=== PATIENT | male | born 1940 | race Caucasian/White ===

== ENCOUNTER → 2016-10-03 | Outpatient (CLI) | payer MEDICARE, OTHER ==
--- NOTE | 2016-10-03 11:19 | MRI ---
EXAM DESCRIPTION: MRI left knee without contrast CLINICAL HISTORY: Medial knee pain meniscal tear chondrosis chronic COMPARISON: None Available. TECHNIQUE: Non contrast MR imaging left knee FINDINGS: Cruciate ligaments are intact. Minimal extensor tendinosis and magic angle artifact. Very large joint effusion/ hemarthrosis. Moderate Ward's cyst measuring nearly 6 cm craniocaudal. Mild free edge degenerative horizontal fraying posterior horn body junction lateral meniscus. More extensive horizontal cleavage tear throughout the medial meniscus with parameniscal cyst formation along the medial joint line. Free edge volume loss posteriorly. Parameniscal cyst extends along the anterior horn as well. There is fairly diffuse grade 4 chondrosis throughout the midportion medial femoral condyle with subchondral edema. There is also vague grade 4 chondrosis towards the posterior aspect of the lateral femoral condyle adjacent to the posterior horn lateral meniscus. This area measures nearly 10 mm in diameter. Mild subchondral edema in this area. There is synovitis/ debris in the popliteus sheath/ recess. There is partial medial extrusion of the medial meniscus along the medial joint line. There is thickening of the MCL which appears reactive or remote. There is tendinosis of the popliteus tendon. Multifocal grade 4 chondrosis of the patella most pronounced in the inferior apex. There is delamination extending into the lateral patellar facet. Lower grade chondrosis of the trochlea. 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
== END ==
LOC: MRI 08:42
PROVIDERS: ATTEND Family Medicine
DX: M23.304 Other meniscus derangements, unspecified medial meniscus, left knee (principal); M23.302 Other meniscus derangements, unspecified lateral meniscus, unspecified knee; M25.462 Effusion, left knee; M19.90 Unspecified osteoarthritis, unspecified site; M94.262 Chondromalacia, left knee

== ENCOUNTER → 2016-10-16 | Outpatient (CLI) | payer MEDICARE, OTHER ==
--- NOTE | 2016-10-16 10:03 | RAD ---
EXAM DESCRIPTION: XR KNEE 4 OR MORE VIEWS CLINICAL HISTORY: 76 y/o ,M, PAIN COMPARISON: October 03, 2016 IMPRESSION: There is a large a joint effusion noted. Joint space loss of the medial and lateral compartments compatible with degenerative change. No evidence of fracture or osseous lesion. Electronically signed by: Richie Gaspar MD 10/16/2016 10:01
--- NOTE | 2016-10-16 10:10 | RAD ---
EXAM DESCRIPTION: XR PELVIS 1-2 VIEWS CLINICAL HISTORY: PAIN COMPARISON: None available FINDINGS: Two AP views of the pelvis show no displaced pelvic fracture. The hip joints are anatomically aligned and fairly well maintained. There are moderately advanced degenerative changes in the lower lumbar spine at several levels. Mild degenerative changes are noted in both sacroiliac joints. Soft tissue calcification adjacent to the anterior superior iliac spine is not acute and may be related to remote trauma. IMPRESSION: Degenerative changes involving the lower lumbar spine and sacroiliac joints, but no acute pelvic abnormality. Electronically signed by: Herve Escalante DO 10/16/2016 10:08
== END ==
LOC: RAD 08:06
PROVIDERS: ATTEND Orthopaedic Surgery
DX: M25.562 Pain in left knee (principal); M25.552 Pain in left hip; M25.462 Effusion, left knee; M12.88 Other specific arthropathies, not elsewhere classified, other specified site

== ENCOUNTER → 2017-08-08 | Outpatient (CLI) | payer MEDICARE, OTHER | END | disposition home or self-care (01) | LOC: LAB.O 11:55 | DX: N18.3 Chronic kidney disease, stage 3 (moderate) (principal) ==

== ENCOUNTER → 2018-01-16 | Outpatient (CLI) | payer MEDICARE, OTHER | LOC: GMAL 14:28 | PROVIDERS: ATTEND Family Medicine | DX: I50.9 Heart failure, unspecified (principal) ==

== ENCOUNTER → 2018-01-31 | Outpatient (CLI) | payer MEDICARE, OTHER | LOC: LAB.O 12:05 | PROVIDERS: ATTEND Internal Medicine Nephrology | DX: N18.3 Chronic kidney disease, stage 3 (moderate) (principal) ==

== ENCOUNTER → 2019-07-30 | Outpatient (CLI) | payer MEDICARE, OTHER | END | disposition home or self-care (01) | LOC: GMAL 15:19 | PROVIDERS: ATTEND Family Medicine | DX: E53.8 Deficiency of other specified B group vitamins (principal); Z12.5 Encounter for screening for malignant neoplasm of prostate; R53.83 Other fatigue; E55.9 Vitamin D deficiency, unspecified | CPT/HCPCS: 82306; 82607; 84443; G0103 ==

== ENCOUNTER → 2019-08-18 | Outpatient (CLI) | payer MEDICARE, OTHER ==
--- NOTE | 2019-08-18 16:28 | RAD ---
EXAM DESCRIPTION: Shoulder,Left 2 or More Views CLINICAL HISTORY: PAIN IN LEFT SHOULDER COMPARISON: None Available. TECHNIQUE: Four radiographs of the left shoulder FINDINGS: There is good internal and external rotation. There is no fracture or bone lesion. There are no significant degenerative changes observed. IMPRESSION: 1. Normal left shoulder four views. Electronically signed by: Pedro Michelle MD 08/18/2019 4:27 PM [facility]
== END ==
LOC: RAD 14:33
PROVIDERS: ATTEND Orthopaedic Surgery
DX: M25.512 Pain in left shoulder (principal)

== ENCOUNTER → 2020-03-12 | Outpatient (CLI) | payer MEDICARE, OTHER | LOC: LAB.O 09:34 | PROVIDERS: ATTEND Internal Medicine Nephrology | DX: N18.3 Chronic kidney disease, stage 3 (moderate) (principal) ==

== ENCOUNTER 2020-04-14 14:54 | Emergency (ER) | payer MEDICARE, OTHER ==
[2020-04-14] MEDS ORDERED: SODIUM CHLORIDE 0.9% 1000ML 1,000 ML IVS ONE (15:14)
[2020-04-14] MEDS ORDERED: IBUPROFEN 200 MG TAB PO ONE (15:15)
--- NOTE | 2020-04-14 15:44 | CT ---
EXAM DESCRIPTION: Head CLINICAL HISTORY: headache 24 hours COMPARISON: None TECHNIQUE: Noncontrast transaxial CT images of the head are obtained from base to vertex. This exam was performed according to our departmental dose-optimization program, which includes automated exposure control, adjustment of the mA and/or kV according to patient size and/or use of iterative reconstruction technique. FINDINGS: The midline structures are not displaced. Sulci are age-appropriate. There are areas of decreased attenuation in the periventricular white matter and the white matter of the centrum semiovale. 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 There is no evidence of mass, mass-effect, hydrocephalus, or acute intracranial hemorrhage. No abnormal extra axial fluid collection is seen. Moderate calcifications of the intracranial carotid arteries are seen. Bone windows show no evidence of depressed skull fracture. The visualized paranasal sinuses are unremarkable. IMPRESSION: 1. Age-appropriate atrophy with evidence of old small vessel ischemic type changes seen. 2. No acute abnormality is seen on noncontrast CT of the head. Electronically signed by: Fred Baxter MD 04/14/2020 3:42 PM CDT
[2020-04-14 17:29] VITALS: TEMP 97.1
--- NOTE | 2020-04-14 17:49 | ED.PDOC ---
History of Present Illness - General Chief Complaint: Headache Stated Complaint: headache Time Seen by Provider: 04/14/20 14:59 Source: patient, family Exam Limitations: no limitations - History of Present Illness Initial Comments: The patient is a 79-year-old male presented emergency room with family secondary to a headache that is been persistent over the last 18 hours. Headache is to the crown of the scalp. No focal tenderness. No trauma. No altered mental status. The patient is not taking any blood thinners. He rarely gets a headache. Family is concerned for coronavirus. No fever. No runny nose. No sore throat. No nausea or vomiting. No diarrhea. No rash. No shortness of breath. No chest pain. The patient does work outside in the heat fairly extensively. Timing/Duration: other Severity: moderate Improving Factors: nothing Worsening Factors: nothing Associated Symptoms: headaches Allergies/Adverse Reactions: Allergies Codeine Adverse Reaction (Verified 04/14/20 15:11) Hydrocodone Adverse Reaction (Verified 04/14/20 15:11) Home Medications: Ambulatory Orders Aspirin 81 mg PO DAILY 11/03/14 Review of Systems - Review of Systems Constitutional: States: malaise EENTM: States: no symptoms reported Respiratory: States: no symptoms reported Cardiology: States: no symptoms reported Gastrointestinal/Abdominal: States: no symptoms reported Genitourinary: States: no symptoms reported Musculoskeletal: States: no symptoms reported Skin: States: no symptoms reported Neurological: States: headache Endocrine: States: no symptoms reported All other Systems: No Change from Baseline Past Medical History (General) - Patient Medical History Hx Seizures: No Hx of COPD: No Hx Congestive Heart Failure: No Hx Diabetes: No Hx Cancer: Yes - prostate ca - Vaccination History Hx Tetanus, Diphtheria Vaccination: No Hx Influenza Vaccination: Yes Hx Pneumococcal Vaccination: Yes - 2005 - Social History Hx Alcohol Use: No - Activities of Daily Living Hospice Agency (if applicable):: None - Female History Patient is a Female of Child Bearing Age (10 -59 yrs old): No Family Medical History - Family History Mother Living Status: Physical Exam - Physical Exam General Appearance: Alert, Comfortable, No apparent distress Eye Exam: bilateral normal Ears, Nose, Throat: hearing grossly normal, other - Moderate wax in ear canals but no obstruction Neck: non-tender, supple Respiratory: lungs clear, normal breath sounds, no respiratory distress, no accessory muscle use Cardiovascular/Chest: normal peripheral pulses, regular rate, rhythm - Borderline bradycardia, no edema Peripheral Pulses: radial,right: 2+, radial,left: 2+ Gastrointestinal/Abdominal: non tender, soft Rectal Exam: deferred Back Exam: no vertebral tenderness Extremity: non-tender, no pedal edema, no calf tenderness, normal capillary refill 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, alert, normal mood/affect, oriented x 3 Skin Exam: normal color Comments: Vital Signs - 24 hr 04/14/20 04/14/20 04/14/20 15:04 15:06 15:30 Temperature 97.5 F L Pulse Rate [ 60 60 55 L brachial] Respiratory 16 16 16 Rate Blood Pressure 169/97 170/75 [Left Arm] O2 Sat by Pulse 97 97 Oximetry 04/14/20 04/14/20 04/14/20 15:31 15:32 16:30 Temperature 97.5 F L Pulse Rate [ 59 L 60 55 L brachial] Respiratory 16 17 12 Rate Blood Pressure 186/83 163/89 172/78 [Left Arm] O2 Sat by Pulse 95 97 97 Oximetry 04/14/20 17:00 Temperature 97.1 F L Pulse Rate [ 54 L brachial] Respiratory 12 Rate Blood Pressure 171/81 [Left Arm] O2 Sat by Pulse 98 Oximetry Respiratory panel was negative. Laboratory Tests 04/14/20 04/14/20 04/14/20 15:20 15:20 15:35 WBC 6.2 RBC 3.96 L Hgb 12.8 L Hct 37.3 L MCV 94.1 H MCH 32.3 H MCHC 34.3 RDW 12.9 Plt Count 205 MPV 7.5 Absolute Neuts (auto) 4.20 Absolute Lymphs (auto) 1.20 Absolute Monos (auto) 0.50 Absolute Eos (auto) 0.20 Absolute Basos (auto) 0.00 Neutrophils % 67.9 Lymphocytes % 19.2 L Monocytes % 8.7 Eosinophils % 3.7 Basophils % 0.5 Sodium 139 Potassium 3.8 Chloride 107 Carbon Dioxide 23 Anion Gap 12.8 BUN 26 H Creatinine 1.38 H BUN/Creatinine Ratio 18.8 Random Glucose 107 H Serum Osmolality 282.8 Calcium 9.0 Magnesium 2.0 Total Bilirubin 1.0 AST 18 ALT 20 Alkaline Phosphatase 55 Creatine Kinase 84 CK-MB (CK-2) 3.4 CK-MB (CK-2) % Not Reportable Troponin I 0.02 B-Natriuretic Peptide 288.0 H* Serum Total Protein 6.9 Albumin 4.2 Globulin 2.7 Albumin/Globulin Ratio 1.6 TSH 1.62 Urine Color Yellow Urine Appearance Clear Urine pH 5.5 Ur Specific [place] 1.025 Urine Protein Negative Urine Glucose (UA) Negative Urine Ketones Trace Urine Blood Negative Urine Nitrite Negative Urine Bilirubin Negative Urine Urobilinogen 0.2 Ur Leukocyte Esterase Negative Urine RBC 0 Urine WBC 0-1 Ur Epithelial Cells 0-1 Urine Bacteria 0 Progress - Progress Progress: 04/14/20 17:50 The patient is a 79-year-old male presented emergency room secondary to headache. Source of this is not entirely certain however dehydration does seem a probable source. 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 he Needs to increase his fluid intake. He may have a mild element of heat exhaustion. His blood pressure was moderately elevated here today. He does need to follow this at home to make sure it is gradually falling back down to normal over the next few days. He did test negative for coronavirus here today. He did receive a liter of IV fluids here today. He needs to keep routine follow-up with his primary care doctor. ER warnings are given. nelda escobedo [phone] Departure - Departure Clinical Impression: Headache Qualifiers: Headache type: unspecified Headache chronicity pattern: acute headache Intractability: not intractable Qualified Code(s): R51 - Headache Hypertension Qualifiers: Hypertension type: unspecified Qualified Code(s): I10 - Essential (primary) hypertension Disposition: Discharge to Home or Self Care Condition: Fair Departure Forms: ED Discharge - Pt. Copy, Patient Portal Self Enrollment Instructions: DI for Headache, Dehydration, Adult (DC) Diet: regular diet Activity: increase activity as tolerated Referrals: Marc Florentino III, MD [Primary Care Provider] - 1-2 Weeks Home Medications: Ambulatory Orders Aspirin 81 mg PO DAILY 11/03/14 Additional Instructions: The patient is a 79-year-old male presented emergency room secondary to headache. Source of this is not entirely certain however dehydration does seem a probable source. 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 he Needs to increase his fluid intake. He may have a mild element of heat exhaustion. His blood pressure was moderately elevated here today. He does need to follow this at home to make sure it is gradually falling back down to normal over the next few days. He did test negative for coronavirus here today. He did receive a liter of IV fluids here today. He needs to keep routine follow-up with his primary care doctor. ER warnings are given.
[2020-04-14 18:05] VITALS: BP 168/89; O2SAT 97
== END 2020-04-14 18:05 | disposition home or self-care (01) ==
LOC: ER 14:54
DX: R51 Headache (principal); I10 Essential (primary) hypertension; R53.81 Other malaise; Z85.46 Personal history of malignant neoplasm of prostate; Z79.899 Other long term (current) drug therapy; Z88.5 Allergy status to narcotic agent
CPT/HCPCS: 36415; 70450; 80053; 81001; 82550; 82553; 83735; 83880; 84443; 84484; 85025; 87635; J7030

== ENCOUNTER → 2020-05-20 | Outpatient (CLI) | payer MEDICARE, OTHER ==
--- NOTE | 2020-05-21 11:04 | MRI ---
EXAM DESCRIPTION: MRI left shoulder CLINICAL HISTORY: Rotator cuff syndrome. Shoulder pain COMPARISON: None. TECHNIQUE: Multiplanar, multisequence MR images of the left shoulder FINDINGS: Complete supraspinatus tendon tear. Retraction of articular fibers to the mid humeral level and bursal fibers to the lateral humeral level. Unusual large defect of the anterior greater tuberosity spanning 1.7 cm anteroposterior by 1.2 cm mediolateral, with depth at least 1 cm. The appearance compatible with either a remote impaction with remote fracture and subsequent resorption of bone. Supraspinatus muscle volume mildly decreased with grade 1 fatty infiltration High-grade partial articular and interstitial tear of the infraspinatus tendon from the myotendinous junction to the insertion. Muscle volume moderately decreased with grade 2 fatty infiltration. Teres minor tendon intact with normal muscle volume and grade 1 fatty infiltration Moderate grade partial articular and interstitial tear of the subscapularis tendon superimposed on tendinosis. Muscle volume is mildly decreased with rate 1 fatty infiltration Long head biceps tendon normal in the bicipital groove. No intra-articular tendon identified apparently completely torn and adherent at the upper bicipital groove. A small tendon fragment remains attached to the anchor. Degenerative signal in the anchor and superior labrum. Blunted posterior superior and periphery of the posterior labrum. Chronic partial detachment of the anterior labrum. Sublabral osseous edema along the glenoid rim from chronic inferior labral detachment. No full-thickness glenoid chondrosis. Mild chondral thinning. Moderate chondral thinning of the inferior medial humeral head. No full-thickness defect or subchondral marrow abnormality Moderate joint effusion and contiguous moderate volume subacromial subdeltoid bursal fluid and synovitis. Fluid extends up into the acromioclavicular joint. Mild acromioclavicular osteoarthritis. Subacromial enthesophyte with anterior lateral downsloping of the acromion. IMPRESSION: Complete supraspinatus tendon tear. Unusual large bony defect of the anterior greater tuberosity. See above High-grade partial articular and interstitial tear of the infraspinatus tendon Moderate grade partial tear of the subscapularis tendon Complete biceps tendon tear adherent at the upper bicipital groove. Chronic labral degeneration. Detachment of the inferior labrum with osseous edema sublabral glenoid rim Electronically signed by: Pedro Broderick MD 05/21/2020 11:02 AM CDT
== END ==
LOC: MRI 10:00
PROVIDERS: ATTEND Orthopaedic Surgery
DX: M75.102 Unspecified rotator cuff tear or rupture of left shoulder, not specified as traumatic (principal); S46.112A Strain of muscle, fascia and tendon of long head of biceps, left arm, initial encounter; S43.432A Superior glenoid labrum lesion of left shoulder, initial encounter; M89.9 Disorder of bone, unspecified

== ENCOUNTER → 2020-08-25 | Outpatient (CLI) | payer MEDICARE, OTHER | LOC: GMAL 13:00 | PROVIDERS: ATTEND Family Medicine | DX: Z20.820 Contact with and (suspected) exposure to varicella (principal); Z79.899 Other long term (current) drug therapy ==

== ENCOUNTER → 2020-09-14 | Outpatient (CLI) | payer MEDICARE, OTHER | LOC: YCFC.O 11:56 | PROVIDERS: ATTEND Family Medicine | DX: Z11.59 Encounter for screening for other viral diseases (principal) ==